=== PATIENT | male | born 1955 | race Caucasian/White ===

== ENCOUNTER 2023-03-14 13:22 | Outpatient (REF) | payer MEDICARE, SELFPAY ==
--- NOTE | ~2023-03-14 | XR_ITS ---
EXAMINATION: XR CHEST CLINICAL INFORMATION: Bronchitis COMPARISON: None available. TECHNIQUE: 2 views of the chest were obtained. FINDINGS: No significant abnormality is noted involving the heart, lungs, mediastinum, bony thorax or soft tissues. XR/XR chest 2V IMPRESSION: Unremarkable examination.
== END 2023-03-14 13:23 | disposition home or self-care (01) ==
LOC: HO.XRAY 13:22
PROVIDERS: Visit Provider Hospitalist
DX: R06.00 Dyspnea, unspecified (principal); R09.89 Other specified symptoms and signs involving the circulatory and respiratory systems; R49.0 Dysphonia; J40 Bronchitis, not specified as acute or chronic; R05.9 Cough, unspecified
CPT/HCPCS: 71046; 99202

== ENCOUNTER 2023-03-14 13:22 | Outpatient (AMB) | payer MEDICARE, SELFPAY ==
[2023-03-14 13:32] VITALS: BP 128/70; PULSE 86; O2SAT 97; BMI 29.4
--- NOTE | 2023-03-14 13:32 | A.OFFVIS_ITS ---
Intake Vital Signs 03/14/23 13:32 Height 5 ft 6 in Weight 181 lb 14.102 oz BMI 29.4 BP 128/70 Blood Pressure Location Lt brachial Position Sitting Pulse 86 Pulse Source Pulse Oximeter Pulse Oximetry (%) 97 Oxygen Delivery Method Room Air Intake Visit Reasons: Cough Pastor Required: No Allergies No Known Allergies Allergy (Verified 03/14/23 13:35) HPI HPI Comments History of Present Illness Details The patient is here for pulmonary evaluation. The patient is a 67-year-old gentle presenting with intermittent shortness of breath. The patient states that for the last several years she has had these intermittent episodes of shortness of breath. Typically independent with activity. Usually feels like is she has a hard time breathing in. Sometimes the episodes can last seconds in sometimes it can last up to 10-15 minutes. Usually he does not take any medications just allows him to resolve on their own. Patient also describes episodes of hoarseness specially after speaking for lung appears that time. [id number] severity. Denies any injury to the vocal cords per se. Although, he did require a partial thyroidectomy. This occurred many years ago. She was told that he may develop some vocal cord issues afterwards. Patient also states that the last several years he has also had frequent bronchitis. Typically once a year and is moderate in significance. When he does get bronchitis requires antibiotics and also times prednisone. He has never use any inhaler before or had at a prescription for. In the office on examination he does not have any wheezing or any stridor which is reassuring. The patient however has some crackles and a left base of unclear significance. Therefore having get a chest x-ray. I also provided peak flow. he was able to score 500 mL. The patient will be able to assess his peak flow measurements when he is having hard time breathing. Also will provide him with rescue inhaler that he can use as needed patient will undergo PFTs and also his chest x-ray and then return for follow-up. The patient's daughters also a speech pathologist. I did encourage him to ask about exercises and massages for the larynx in case there is a component of vocal cord dysfunction. [facility] Medical History (Updated 03/15/23 @ 08:40 by Bill Hadley MD) Hoarseness Social History (Updated 03/14/23 @ 13:37 by Lay Alexis, RMA) Patient Tobacco Use Status: Former Tobacco user Tobacco use type: Cigarette Years Smoked: 38 Years Ago Review of Systems Const Denies fever(s) and Denies weight loss Eyes Denies change in vision ENT Reports hoarseness Card Denies chest pain and Reports dyspnea Resp Reports cough, Reports dyspnea and Denies wheezing GI Reports dyspepsia and Reports heartburn Musc Reports no additional complaints Skin/Breast Denies rash Neuro Reports no additional complaints Andi/Lymph Denies lymphadenopathy Aller/Immun Denies wheezing Physical Exam Vital Signs: Last Vital Signs Pulse 86 03/14/23 13:32 BP 128/70 03/14/23 13:32 Pulse Ox 97 03/14/23 13:32 Oxygen Delivery Method Room Air 03/14/23 13:32 BMI result Body Mass Index 29.4 Const General: comfortable HEENT Head: Yes atraumatic Neck Neck: Yes normal visual inspection, Yes trachea midline and Yes supple Chest Chest palpation & inspection: normal inspection of the chest Resp Effort & Inspection: normal respiratory effort and no stridor Auscultation: rales on the left at the base Cardio Rate: regular rate Rhythm: regular rhythm Heart sounds: S1 normal heart sound present and S2 normal heart sound present GI Palpation (GI): Soft to palpation Skin General skin exam: no rashes or lesions noted Extrem General: Yes no clubbing, cyanosis or edema Assessment & Plan Assessment & Plan (1) Dyspnea: Code(s): R06.00 - Dyspnea, unspecified Qualifiers: Dyspnea type: unspecified Qualified Code(s): R06.00 - Dyspnea, unspecified (2) Chest crackles: Code(s): R09.89 - Other specified symptoms and signs involving the circulatory and respiratory systems (3) Hoarseness: Code(s): R49.0 - Dysphonia (4) Bronchitis: Code(s): J40 - Bronchitis, not specified as acute or chronic Plan The patient presents with episodic shortness of breath. The symptoms maybe related to an upper airway obstruction such as VCD. Howerver, asthma is in the differential. Also with episodes of bronchitis with some crackles on exam that needs further evaluation. REC: CXR peak flow provided; 500ml NU as needed or if peak flow decreases PFTs F/U 2 months Orders: Orders XR chest 2V 03/14/23 J40 - Bronchitis, not specified as acute or chronic PFT pulmonary function test Today R06.00 - Dyspnea, unspecified Medications: New albuterol sulfate 90 mcg/actuation 2 inhalations inhalation Q6H PRN 18 grams 12RF shortness of breath or wheezing 30 days J44.9 - Chronic obstructive pulmonary disease, unspecified Coding Level of Care Code New Pt Level 4 (96505) Diagnoses Dyspnea R06.00 Dyspnea type: unspecified Chest crackles R09.89 Hoarseness R49.0 Bronchitis J40 Time Spent (min) 40
== END 2023-03-14 14:13 | disposition home or self-care (01) ==
PROVIDERS: PCP Physician Assistant Medical; Visit Provider Hospitalist
DX: R06.00 Dyspnea, unspecified (principal); R09.89 Other specified symptoms and signs involving the circulatory and respiratory systems; R49.0 Dysphonia; J40 Bronchitis, not specified as acute or chronic
CPT/HCPCS: 99204

== ENCOUNTER 2023-03-28 11:23 | Outpatient (REF) | payer MEDICARE, SELFPAY ==
--- NOTE | 2023-03-28 12:03 | PFT_ITS ---
FLOWS: 1. FEV1 113% of predicted at 3.22 L. 2. FVC 105% of predicted at 4.05 L. 3. FEV1 to FVC ratio of 0.79. 4. No bronchodilator response. LUNG VOLUMES: 1. Total lung capacity 86% of predicted at 5.40 L. 2. Residual volume 60% of predicted at 1.32 L. 3. Slow vital capacity 101% of predicted at 4.08 L. 4. Expiratory reserve volume 47% of predicted at 0.50 L. 5. Diffusion capacity is normal. IMPRESSION: No obstructive or restrictive ventilatory defect. No bronchodilator response. Essentially normal pulmonary function test. Emil Lozano MD AP/MODL / [id number]
== END 2023-03-28 11:24 | disposition home or self-care (01) ==
LOC: HO.RESP 11:23
PROVIDERS: PCP Physician Assistant Medical; Visit Provider Hospitalist
DX: R06.00 Dyspnea, unspecified (principal)
CPT/HCPCS: 94010; 94727; 94729

== ENCOUNTER → 2023-03-28 12:03 | Outpatient (BNV) | payer MEDICARE, SELFPAY | PROVIDERS: PCP Physician Assistant Medical; Visit Provider Internal Medicine Pulmonary Disease | DX: R06.09 Other forms of dyspnea (principal); R05.3 Chronic cough | CPT/HCPCS: 94060; 94727; 94729 ==

== ENCOUNTER 2023-05-03 13:50 | Outpatient (AMB) | payer MEDICARE, SELFPAY ==
--- NOTE | 2023-05-03 14:01 | MHC.OFFVIS ---
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 The patient states that for the last several years she has had these intermittent episodes of shortness of breath. Typically independent with activity. Usually feels like is she has a hard time breathing in. Sometimes the episodes can last seconds in sometimes it can last up to 10-15 minutes. Usually he does not take any medications just allows him to resolve on their own. Patient also describes episodes of hoarseness specially after speaking for lung appears that time. Nusm-gk-wwtnluka severity. Denies any injury to the vocal cords per se. Although, he did require a partial thyroidectomy. This occurred many years ago. She was told that he may develop some vocal cord issues afterwards. Patient also states that the last several years he has also had frequent bronchitis. Typically once a year and is moderate in significance. When he does get bronchitis requires antibiotics and also times prednisone. He has never use any inhaler before or had at a prescription for. In the office on examination he does not have any wheezing or any stridor which is reassuring. The patient however has some crackles and a left base of unclear significance. Therefore having get a chest x-ray. I also provided peak flow. he was able to score 500 mL. The patient will be able to assess his peak flow measurements when he is having hard time breathing. Also will provide him with rescue inhaler that he can use as needed patient will undergo PFTs and also his chest x-ray and then return for follow-up. The patient's daughters also a speech pathologist. I did encourage him to ask about exercises and massages for the larynx in case there is a component of vocal cord dysfunction. 05/03/2023 the patient is here for a pulmonary follow-up visit. Overall the patient is doing about the same. Still complaining of that difficulty breathing and sensation mainly on the throat area. Moderate severity. It is intermittent. Patient did have pulmonary function studies we personally reviewed them. They are fairly normal. Although upon looking at the flow volume loop there appears to be some saw tooth pattern to the inspiratory flow suggesting some fasciculation of the vocal cords. This will go along with underlying vocal cord dysfunction. In addition to that his lung volumes were low normal. The patient also underwent a chest x-ray which was without any acute disease which is reassuring. Based on the findings and ongoing symptoms I did recommend he consider getting a CT scan of the neck. She is going to consider for now. Also, an ENT consultation for laryngoscopy will be important to assess for vocal cord dysfunction properly. The patient is also has access to a speech pathologist in the family. He will talk to them again to make sure that he can get some exercise syndrome ideas as far as vocal cord dysfunction. The patient also will prescribe gabapentin that he can use at night to try to provide some relaxation larynx. [facility] Medical History (Updated 05/03/23 @ 21:30 by Bill Hadley MD) Vocal cord dysfunction Hoarseness Social History (Updated 03/14/23 @ 13:37 by DREW Osullivan) Patient Tobacco Use Status: Former Tobacco user Tobacco use type: Cigarette Years Smoked: 38 Years Ago Review of Systems Const Denies fever(s) and Denies weight loss Eyes Denies change in vision ENT Reports hoarseness Card Denies chest pain and Reports dyspnea Resp Reports cough, Reports dyspnea and Denies wheezing GI Reports dyspepsia and Reports heartburn Musc Reports no additional complaints Skin/Breast Denies rash Neuro Reports no additional complaints Andi/Lymph Denies lymphadenopathy Aller/Immun Denies wheezing Physical Exam Vital Signs: Last Vital Signs Pulse 80 05/03/23 14:07 Pulse Ox 98 05/03/23 14:07 Oxygen Delivery Method Room Air 05/03/23 14:07 BMI result Body Mass Index 28.4 Const General: comfortable HEENT Head: Yes atraumatic Neck Neck: Yes normal visual inspection, Yes trachea midline and Yes supple Chest Chest palpation & inspection: normal inspection of the chest Resp Effort & Inspection: normal respiratory effort and no stridor Auscultation: rales on the left at the base Cardio Rate: regular rate Rhythm: regular rhythm Heart sounds: S1 normal heart sound present and S2 normal heart sound present GI Palpation (GI): Soft to palpation Skin General skin exam: no rashes or lesions noted Extrem General: Yes no clubbing, cyanosis or edema Assessment & Plan Assessment & Plan (1) Dyspnea: Code(s): R06.00 - Dyspnea, unspecified Qualifiers: Dyspnea type: unspecified Qualified Code(s): R06.00 - Dyspnea, unspecified (2) Hoarseness: Code(s): R49.0 - Dysphonia Plan The patient presents with episodic shortness of breath. The symptoms maybe related to an upper airway obstruction such as VCD. CXR is reassuring. PFTs with no obstruction, but a fine saw tooth pattern during the inspiratory phase suggesting fasciculations of the vocal cords REC: Consider CT neck, the patient will think about it ENT consultation for laryngoscopy or strobe to assess vocal cords start gabapentin at night NU as needed speech therapy F/U 4-6 months Orders: Referrals Ear/Nose/Throat Referral J38.3 - Other diseases of vocal cords Medications: New gabapentin 300 mg PO BEDTIME 30 days 30 caps 6RF Coding Level of Care Code Est Pt Level 4 (22542) Diagnoses Dyspnea, unspecified type R06.00 Dyspnea type: unspecified Hoarseness R49.0 Time Spent (min) 18
[2023-05-03 14:07] VITALS: PULSE 80; O2SAT 98; BMI 28.4
== END 2023-05-03 14:28 | disposition home or self-care (01) ==
PROVIDERS: PCP Physician Assistant Medical; Visit Provider Hospitalist
DX: R06.00 Dyspnea, unspecified (principal); R49.0 Dysphonia
CPT/HCPCS: 99214

== ENCOUNTER → 2023-05-03 13:50 | Outpatient (BNVA) | payer MEDICARE, SELFPAY | PROVIDERS: PCP Physician Assistant Medical; Visit Provider Hospitalist | DX: R06.00 Dyspnea, unspecified (principal); R49.0 Dysphonia | CPT/HCPCS: 99212 ==

== ENCOUNTER 2023-07-08 08:17 | Outpatient (REF) | payer MEDICARE, SELFPAY ==
--- NOTE | ~2023-07-08 | CT_ITS ---
EXAMINATION: CT SOFT TISSUE NECK WITH CONTRAST CLINICAL INFORMATION: 68-year-old with disease of upper respiratory tract, unspecified. Shortness of breath, episodes of hoarseness. COMPARISON: None available. TECHNIQUE: Following the intravenous administration of 60 mL of Omnipaque 350 intravenous contrast, helical imaging was performed in the axial plane with generation of coronal and sagittal reformatted images. This CT examination was performed using dose optimization techniques as appropriate, variously including the following: *Automated exposure control *Adjustment of mA and/or kV according to patient size (this includes techniques or standardized protocols for targeted exams where dose is matched to indication/reason for exam; i.e. extremities or head) *Use of iterative reconstruction technique DLP: 376 mGy-cm FINDINGS: Skull Base: The bony skull base and visualized calvarium appear grossly intact.?Limited assessment of the visualized intracranial and orbital soft tissue structures is unremarkable.?The visualized mastoids, middle ear cavities and sinonasal cavity are clear. Suprahyoid Neck: The nasopharynx, retropharynx and oropharynx are smoothly contoured without significant nodularity or abnormal enhancement. The corporate meeting planner and parapharyngeal spaces are within normal limits with a normal appearance to the major salivary glands. Soft palate, oral tongue and base of the tongue are symmetric and intact. The floor of the mouth structures appear within normal limits. Lingual and buccal spaces appear normal. Patient is noted to be edentulous. Scattered small, nonenlarged, nonpathologic-appearing bilateral submandibular space and IJ chain lymph nodes are noted. No lymphadenopathy. There is somewhat nodular-appearing asymmetrically enhancing lingual tonsillar tissue projecting into the left vallecula, which should be correlated with direct visualization. Epiglottis appears within normal limits. Infrahyoid Neck: The hypopharynx and larynx appear grossly within normal limits. Beam-hardening and streak artifact from dense contrast material within the right internal jugular vein and spinal hardware partially obscures evaluation of the retropharyngeal and retrolaryngeal soft tissues and limits the study. There are clips in the left thyroid bed consistent with a previous left-sided hemithyroidectomy. The residual right thyroid lobe is partially obscured at its cephalad margin but demonstrates no recurrent nodules. No infrahyoid lymphadenopathy identified. Vascular: There is opacification of the major arterial vessels. There is calcified plaque at both carotid bulbs, right more than left. Suggest correlation for any bruits. There is reflux of dense contrast material into the right internal jugular vein. Upper Chest: Evaluation of the visualized lung parenchyma is limited due to the expiratory phase of this exam. Heterogeneous lung attenuation is likely reflective of this. The subglottic and thoracic trachea are patent and normal in caliber. Mild left coronary calcification is suspected. Mediastinum is otherwise grossly unremarkable. Skeletal: There is cervicothoracic dextrocurvature at the C6-C7 level. Straightening of the cervical spine in the sagittal plane with evidence of a previous ACDF procedure spanning the C4-C5 level with metallic hardware noted in place. Mild anterolisthesis at C2-C3 with multilevel DDD and spondylosis throughout the remainder of the cervical spine. Other Comments: None. CT/CT soft tissue neck w IV con IMPRESSION: 1. Status post left-sided hemithyroidectomy no evidence for airway compromise. 2. No cervical lymphadenopathy identified. Note that the beam-hardening from spinal hardware and dense contrast material in the right IJ vein partially obscures evaluation of the retropharyngeal/retrolaryngeal soft tissues. 3. Calcified plaque at both carotid bulbs, right more than left. Suggest correlation for any bruits. 4. Multilevel cervical degenerative changes and postoperative changes as described above.
[2023-07-08] MEDS: iohexoL 350 MG/ML 75 ML INFUS..BTL 60 ML IV (09:30)
[2023-07-11 09:07] LABS: Creatinine POC 0.7 mg/dL (0.5-1.4); GFR POC > 60
== END 2023-07-08 08:18 | disposition home or self-care (01) ==
LOC: HO.CT 08:17
PROVIDERS: PCP Physician Assistant Medical; Visit Provider Hospitalist
DX: J39.9 Disease of upper respiratory tract, unspecified (principal)
CPT/HCPCS: 70491; 82565; Q9967

== ENCOUNTER 2023-11-08 10:58 | Outpatient (AMB) | payer MEDICARE, SELFPAY ==
[2023-11-08 11:01] VITALS: PULSE 73; O2SAT 97
--- NOTE | 2023-11-08 11:01 | A.OFFVIS_ITS ---
Intake Vital Signs 11/08/23 11:01 Height 5 ft 6 in Weight 186 lb BMI 30.0 Pulse 73 Pulse Source Pulse Oximeter Pulse Oximetry (%) 97 Oxygen Delivery Method Room Air Intake Visit Reasons: Cough Fingernail Former Required: No Allergies No Known Allergies Allergy (Verified 11/08/23 11:02) HPI HPI Comments History of Present Illness Details The patient is a 68-year-old gentle presenting with intermittent shortness of breath. The patient states that for the last several years she has had these intermittent episodes of shortness of breath. Typically independent with activity. Usually feels like is she has a hard time breathing in. Sometimes the episodes can last seconds in sometimes it can last up to 10-15 minutes. Usually he does not take any medications just allows him to resolve on their own. Patient also describes episodes of hoarseness specially after speaking for lung appears that time. Mvcy-eq-xlvttifh severity. Denies any injury to the vocal cords per se. Although, he did require a partial thyroidectomy. This occurred many years ago. She was told that he may develop some vocal cord issues afterwards. Patient also states that the last several years he has also had frequent bronchitis. Typically once a year and is moderate in significance. When he does get bronchitis requires antibiotics and also times prednisone. He has never use any inhaler before or had at a prescription for. In the office on examination he does not have any wheezing or any stridor which is reassuring. The patient however has some crackles and a left base of unclear significance. Therefore having get a chest x-ray. I also provided peak flow. he was able to score 500 mL. The patient will be able to assess his peak flow measurements when he is having hard time breathing. Also will provide him with rescue inhaler that he can use as needed patient will undergo PFTs and also his chest x-ray and then return for follow-up. The patient's daughters also a speech pathologist. I did encourage him to ask about exercises and massages for the larynx in case there is a component of vocal cord dysfunction. 05/03/2023 the patient is here for a pulm onary follow-up visit. Overall the patient is doing about the same. Still complaining of that difficulty breathing and sensation mainly on the throat area. Moderate severity. It is intermittent. Patient did have pulmonary function studies we personally reviewed them. They are fairly normal. Although upon looking at the flow volume loop there appears to be some saw tooth pattern to the inspiratory flow suggesting some fasciculation of the vocal cords. This will go along with underlying vocal cord dysfunction. In addition to that his lung volumes were low normal. The patient also underwent a chest x-ray which was without any acute disease which is reassuring. Based on the findings and ongoing symptoms I did recommend he consider getting a CT scan of the neck. She is going to consider for now. Also, an ENT consultation for laryngoscopy will be important to assess for vocal cord dysfunction properly. The patient is also has access to a speech pathologist in the family. He will talk to them again to make sure that he can get some exercise syndrome ideas as far as vocal cord dysfunction. The patient also will prescribe gabapentin that he can use at night to try to provide some relaxation larynx. 11/08/2023 the patient is here for a pulmo nary follow-up visit. The patient overall has been doing better. His cough is better in the coughing spells have decreasing amount. We did talk about the saw tooth pattern of his flow volume loops suggesting some degree of vocal cord dysfunction. We did refer him to ENT but he has not heard the as of yet. Therefore will call ENT to see and get an update as far as the appointment. The patient also had a CT scan of the neck which we personally reviewed. He did have a partial thyroidectomy. Although his trachea appears to be intact. Vocal cords also appeared to be intact. The patient did have some inflammation the nasal turbinates. It was also mention some calcifications of the carotid bulbs as far as carotid arteries and I do not appreciate any bruits but at this point doing carotid Doppler will be reasonable. The patient also has atherosclerosis of the coronary arteries at least appreciated limited based on her CT scan of the neck. The patient can follow-up with primary care doctor also he was recently placed on Lipitor which is reassuring from a how standpoint he did try the inhaler that short-acting beta agonist he only felt some tremulousness and palpitations but it did not help his cough. The patient hopefully will see ENT in will consider getting allergy testing when he is seen by them. Right now he is having some nasal congestion and sinus tenderness. Will go ahead and treating for about sinusitis. The patient can also start Afrin just for 5 days to help him with the nasal congestion and then continue with fluticasone nasal spray and also can double up on the allergy medicine for now. [facility] Medical History (Updated 11/08/23 @ 21:24 by Bill Hadley MD) Vocal cord dysfunction Hoarseness Social History (Updated 03/14/23 @ 13:37 by Lay Alexis Nelia) Patient Tobacco Use Status: Former Tobacco user Tobacco use type: Cigarette Years Smoked: 38 Years Ago Review of Systems Const Denies fever(s) and Denies weight loss Eyes Denies change in vision ENT Reports hoarseness Card Denies chest pain and Reports dyspnea Resp Reports cough, Reports dyspnea and Denies wheezing GI Reports dyspepsia and Reports heartburn Musc Reports no additional complaints Skin/Breast Denies rash Neuro Reports no additional complaints Andi/Lymph Denies lymphadenopathy Aller/Immun Denies wheezing Physical Exam Vital Signs: Last Vital Signs Pulse 73 11/08/23 11:01 Pulse Ox 97 11/08/23 11:01 Oxygen Delivery Method Room Air 11/08/23 11:01 BMI result Body Mass Index 30.0 Const General: comfortable HEENT Head: Yes atraumatic Neck Neck: Yes normal visual inspection, Yes trachea midline and Yes supple Chest Chest palpation & inspection: normal inspection of the chest Resp Effort & Inspection: normal respiratory effort and no stridor Auscultation: no rales Cardio Rate: regular rate Rhythm: regular rhythm Heart sounds: S1 normal heart sound present and S2 normal heart sound present GI Palpation (GI): Soft to palpation Skin General skin exam: no rashes or lesions noted Extrem General: Yes no clubbing, cyanosis or edema Results Reviewed Results Reviewed: [place] [address] CT Scan Report Signed Patient: Raghav Frost MR#: [id number] : 1955 Acct:[id number] Age/Sex: 68 / M ADM Date: 07/08/23 Loc: HO.CT Attending Dr: Bill aHdley MD Ordering Physician: Bill Hadley MD Date of Service: 07/08/23 Procedure(s): CT soft tissue neck w IV con Accession Number(s): [id number] cc: Bill Hadley MD; Mayelin Forrester~ EXAMINATION: CT SOFT TISSUE NECK WITH CONTRAST CLINICAL INFORMATION: 68-year-old with disease of upper respiratory tract, unspecified. Shortness of breath, episodes of hoarseness. COMPARISON: None available. TECHNIQUE: Following the intravenous administration of 60 mL of Omnipaque 350 intravenous contrast, helical imaging was performed in the axial plane with generation of coronal and sagittal reformatted images. This CT examination was performed using dose optimization techniques as appropriate, variously including the following: *Automated exposure control *Adjustment of mA and/or kV according to patient size (this includes techniques or standardized protocols for targeted exams where dose is matched to indication/reason for exam; i.e. extremities or head) *Use of iterative reconstruction technique DLP: 376 mGy-cm FINDINGS: Skull Base: The bony skull base and visualized calvarium appear grossly intact.?Limited assessment of the visualized intracranial and orbital soft tissue structures is unremarkable.?The visualized mastoids, middle ear cavities and sinonasal cavity are clear. Suprahyoid Neck: The nasopharynx, retropharynx and oropharynx are smoothly contoured without significant nodularity or abnormal enhancement. The vp outcomes and parapharyngeal spaces are within normal limits with a normal appearance to the major salivary glands. Soft palate, oral tongue and base of the tongue are symmetric and intact. The floor of the mouth structures appear within normal limits. Lingual and buccal spaces appear normal. Patient is noted to be edentulous. Scattered small, nonenlarged, nonpathologic-appearing bilateral submandibular space and IJ chain lymph nodes are noted. No lymphadenopathy. There is somewhat nodular-appearing asymmetrically enhancing lingual tonsillar tissue projecting into the left vallecula, which should be correlated with direct visualization. Epiglottis appears within normal limits. Infrahyoid Neck: The hypopharynx and larynx appear grossly within normal limits. Beam-hardening and streak artifact from dense contrast material within the right internal jugular vein and spinal hardware partially obscures evaluation of the retropharyngeal and retrolaryngeal soft tissues and limits the study. There are clips in the left thyroid bed consistent with a previous left-sided hemithyroidectomy. The residual right thyroid lobe is partially obscured at its cephalad margin but demonstrates no recurrent nodules. No infrahyoid lymphadenopathy identified. Vascular: There is opacification of the major arterial vessels. There is calcified plaque at both carotid bulbs, right more than left. Suggest correlation for any bruits. There is reflux of dense contrast material into the right internal jugular vein. Upper Chest: Evaluation of the visualized lung parenchyma is limited due to the expiratory phase of this exam. Heterogeneous lung attenuation is likely reflective of this. The subglottic and thoracic trachea are patent and normal in caliber. Mild left coronary calcification is suspected. Mediastinum is otherwise grossly unremarkable. Skeletal: There is cervicothoracic dextrocurvature at the C6-C7 level. Straightening of the cervical spine in the sagittal plane with evidence of a previous ACDF procedure spanning the C4-C5 level with metallic hardware noted in place. Mild anterolisthesis at C2-C3 with multilevel DDD and spondylosis throughout the remainder of the cervical spine. Other Comments: None. CT/CT soft tissue neck w IV con IMPRESSION: 1. Status post left-sided hemithyroidectomy no evidence for airway compromise. 2. No cervical lymphadenopathy identified. Note that the beam-hardening from spinal hardware and dense contrast material in the right IJ vein partially obscures evaluation of the retropharyngeal/retrolaryngeal soft tissues. 3. Calcified plaque at both carotid bulbs, right more than left. Suggest correlation for any bruits. 4. Multilevel cervical degenerative changes and postoperative changes as described above. Dictated By: TUCKER BIGGS MD Signed By: <Electronically signed by TUCKER BIGGS MD in OV> 07/13/23 180 DD/ 4 TD/TT: [employer] Consultant: Assessment & Plan Assessment & Plan (1) Dyspnea: Code(s): R06.00 - Dyspnea, unspecified Qualifiers: Dyspnea type: unspecified Qualified Code(s): R06.00 - Dyspnea, unspecified (2) Hoarseness: Comment: better Code(s): R49.0 - Dysphonia (3) Carotid artery calcification: Code(s): I65.29 - Occlusion and stenosis of unspecified carotid artery Qualifiers: Laterality: bilateral Qualified Code(s): I65.23 - Occlusion and stenosis of bilateral carotid arteries Plan The patient presents with episodic shortness of breath. The symptoms maybe related to an upper airway obstruction such as VCD. CXR is reassuring. PFTs with no obstruction, but a fine saw tooth pattern during the inspiratory phase suggesting fasciculations of the vocal cords REC: Increase Zyrtec BID x 1 month Start Fluticasone nasal spray ENT consultation for laryngoscopy or strobe to assess vocal cords. Should also have allergy testing Gabapentin at night NU as needed speech therapy Carotid dopplers B/L F/U 8-12 months Orders: Orders US carotid duplex BI Today I65.29 - Occlusion and stenosis of unspecified carotid artery Medications: New fluticasone propionate 50 mcg/actuation 2 sprays intranasal DAILY 30 days 16 grams 5RF cetirizine (Zyrtec) 10 mg PO BID 30 days 60 tabs 0RF Coding Level of Care Code Est Pt Level 4 (46791) Diagnoses Dyspnea, unspecified type R06.00 Dyspnea type: unspecified Hoarseness R49.0 Calcification of both carotid arteries I65.23 Laterality: bilateral Time Spent (min) 18
== END 2023-11-08 11:26 | disposition home or self-care (01) ==
PROVIDERS: PCP Nurse Practitioner; Visit Provider Hospitalist
DX: R06.00 Dyspnea, unspecified (principal); R49.0 Dysphonia; I65.23 Occlusion and stenosis of bilateral carotid arteries
CPT/HCPCS: 99214

== ENCOUNTER → 2023-11-08 10:58 | Outpatient (BNVA) | payer MEDICARE, SELFPAY | PROVIDERS: PCP Physician Assistant Medical; Visit Provider Hospitalist | DX: R06.00 Dyspnea, unspecified (principal); I77.9 Disorder of arteries and arterioles, unspecified; R49.0 Dysphonia; I65.23 Occlusion and stenosis of bilateral carotid arteries | CPT/HCPCS: 99212 ==

== ENCOUNTER 2023-11-28 09:56 | Outpatient (REF) | payer MEDICARE, SELFPAY ==
--- NOTE | ~2023-11-28 | US_ITS ---
EXAMINATION: US EXTRACRANIAL CAROTID DUPLEX, BILATERAL CLINICAL INFORMATION: Occlusion and stenosis of unspecified carotid artery COMPARISON: None available. TECHNIQUE: Real-time ultrasound and Doppler techniques (integrating B-mode 2-D vascular images, Doppler spectral analysis and color-flow Doppler imaging) were utilized to interrogate the extracranial carotid arteries, the vertebral arteries and proximal subclavian arteries bilaterally. The degree of stenosis is determined by criteria similar to NASCET. FINDINGS: Right Side: 1. There is mild atherosclerotic plaque seen in the bifurcation/proximal ICA region. 2. The common carotid artery PSV proximally is 94 cm/s and distally 77 cm/s. 3. The proximal internal carotid artery velocities are 57 cm/s systolic and 11 cm/s diastolic. 4. The proximal external carotid artery PSV is 106 cm/s. 5. The vertebral artery shows antegrade flow. 6. The subclavian artery waveforms are normal. Left Side: 1. There is mild atherosclerotic plaque seen in the bifurcation/proximal ICA region. 2. The common carotid artery PSV proximally is 109 cm/s and distally 83 cm/s. 3. The proximal internal carotid artery velocities are 61 cm/s systolic and 25 cm/s diastolic. 4. The proximal external carotid artery PSV is 94 cm/s. 5. The vertebral artery shows antegrade flow. 6. The subclavian artery waveforms are normal. US/US carotid duplex BI IMPRESSION: 1. RIGHT: Minimal, non-hemodynamically significant stenosis of the proximal right internal carotid artery corresponding to a 0-49% stenosis by velocity criteria. 2. LEFT: Minimal, non-hemodynamically significant stenosis of the proximal left internal carotid artery corresponding to a 0-49% stenosis by velocity criteria.
== END 2023-11-28 09:57 | disposition home or self-care (01) ==
LOC: HO.US 09:56
PROVIDERS: PCP Nurse Practitioner; Visit Provider Hospitalist
DX: I65.23 Occlusion and stenosis of bilateral carotid arteries (principal); I77.9 Disorder of arteries and arterioles, unspecified
CPT/HCPCS: 93880

== ENCOUNTER 2024-11-23 09:47 | Outpatient (AMB) | payer MEDICARE, SELFPAY ==
[2024-11-23 09:50] VITALS: BP 110/62; PULSE 76; O2SAT 99; BMI 31.5
--- NOTE | 2024-11-23 09:50 | A.OFFVIS_ITS ---
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 The patient states that for the last several years she has had these intermittent episodes of shortness of breath. Typically independent with activity. Usually feels like is she has a hard time breathing in. Sometimes the episodes can last seconds in sometimes it can last up to 10-15 minutes. Usually he does not take any medications just allows him to resolve on their own. Patient also describes episodes of hoarseness specially after speaking for lung appears that time. Ackd-rp-bulnhaan severity. Denies any injury to the vocal cords per se. Although, he did require a partial thyroidectomy. This occurred many years ago. She was told that he may develop some vocal cord issues afterwards. Patient also states that the last several years he has also had frequent bronchitis. Typically once a year and is moderate in significance. When he does get bronchitis requires antibiotics and also times prednisone. He has never use any inhaler before or had at a prescription for. In the office on examination he does not have any wheezing or any stridor which is reassuring. The patient however has some crackles and a left base of unclear significance. Therefore having get a chest x-ray. I also provided peak flow. he was able to score 500 mL. The patient will be able to assess his peak flow measurements when he is having hard time breathing. Also will provide him with rescue inhaler that he can use as needed patient will undergo PFTs and also his chest x-ray and then return for follow-up. The patient's daughters also a speech pathologist. I did encourage him to ask about exercises and massages for the la rynx in case there is a component of vocal cord dysfunction. 05/03/2023 the patient is here for a pulmonary follow-up visit. Overall the patient is doing about the same. Still complaining of that difficulty breathing and sensation mainly on the throat area. Moderate severity. It is intermittent. Patient did have pulmonary function studies we personally reviewed them. They are fairly normal. Although upon looking at the flow volume loop there appears to be some saw tooth pattern to the inspiratory flow suggesting some fasciculation of the vocal cords. This will go along with underlying vocal cord dysfunction. In addition to that his lung volumes were low normal. The patient also underwent a chest x-ray which was without any acute disease which is reassuring. Based on the findings and ongoing symptoms I did recommend he consider getting a CT scan of the neck. She is going to consider for now. Also, an ENT consultation for laryngoscopy will be important to assess for vocal cord dysfunction properly. The patient is also has access to a speech pathologist in the family. He will talk to them again to make sure that he can get some exercise syndrome ideas as far as vocal cord dysfunction. The patient also will prescribe gabapentin that he can use at night to try to provide some relaxation larynx. 11/08/2023 the patient is here for a pulmonary follow-up visit. The patient overall has been doing better. His cough is better in the coughing spells have decreasing amount. We did talk about the saw tooth pattern of his flow volume loops suggesting some degree of vocal cord dysfunction. We did refer him to ENT but he has not heard the as of yet. Therefore will call ENT to see and get an update as far as the appointment. The patient also had a CT scan of the neck which we personally reviewed. He did have a partial thyroidectomy. Although his trachea appears to be intact. Vocal cords also appeared to be intact. The patient did have some inflammation the nasal turbinates. It was also mention some calcifications of the carotid bulbs as far as carotid arteries and I do not appreciate any bruits but at this point doing carotid Doppler will be reasonable. The patient also has atherosclerosis of the coronary arteries at least appreciated limited based on her CT scan of the neck. The patient can follow-up with primary care doctor also he was recently placed on Lipitor which is reassuring from a how standpoint he did try the inhaler that short-acting beta agonist he only felt some tremulousness and palpitations but it did not help his cough. The patient hopefully will see ENT in will consider getting allergy testing when he is seen by them. Right now he is having some nasal congestion and sinus tenderness. Will go ahead and treating for about sinusitis. The patient can also start Afrin just for 5 days to help him with the nasal congestion and then continue with fluticasone nasal spray and also can double up on the allergy medicine for now. 11/23/2024 the patient is here for a pulmonary follow-up visit. Overall the patient is doing well. He did finally have allergy testing and does have significant allergies. 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 He responds most of the fluticasone nasal spray and also to the Zyrtec. He has been taking that regularly. Has a rescue inhaler but he has not required it. We did review his most recent imaging studies which include the chest x-ray from 2022 demonstrating no acute disease and also CT scan of the neck demonstrating a little bit of air trapping mosaic pattern likely secondary to expiratory CT scan cuts and this have the atherosclerosis. He did have that followed up. Overall the patient is doing well he has hoarseness is better. The patient will go ahead and follow-up in a year's time or as needed. If he has any issues prior to that he will call for an earlier assessment. [facility] Medical History (Updated 11/08/23 @ 21:24 by Bill Hadley MD) Vocal cord dysfunction Hoarseness Social History (Updated 11/23/24 @ 09:54 by Barbi Friedman CMA) Alcohol intake: current Alcohol intake frequency: holidays/special occasions only Patient Tobacco Use Status: Former Tobacco user Tobacco use type: Cigarette Years Smoked: 38 Years Ago Review of Systems Const Denies chills, Denies fatigue, Denies fever(s), Denies weight gain and Denies weight loss Eyes Denies change in vision ENT Denies dizziness, Reports nasal congestion and Reports nasal discharge Card Denies chest pain, Denies leg edema, Denies lightheadedness, Denies palpitations, Denies dyspnea on exertion, Denies orthopnea and Denies other Resp Reports cough, Denies dyspnea on exertion and Denies wheezing GI Denies hematochezia and Denies change in stool character Musc Denies abnormal gait, Denies muscle weakness, Denies numbness, Denies radiating pain into limb and Denies tingling Skin/Breast Denies rash Neuro Denies abnormal gait, Denies dizziness, Denies numbness and Denies tingling Endo Denies fatigue and Denies palpitations Andi/Lymph Denies lymphadenopathy Aller/Immun Denies wheezing Physical Exam Vital Signs: Last Vital Signs Pulse 76 04/25/25 09:50 BP 110/62 11/23/24 09:50 Pulse Ox 99 11/23/24 09:50 BMI result Body Mass Index 31.5 Const General: comfortable HEENT Head: Yes atraumatic Neck Neck: Yes normal visual inspection, Yes trachea midline and Yes supple Chest Chest palpation & inspection: normal inspection of the chest Resp Effort & Inspection: normal respiratory effort and no stridor Auscultation: no rales Cardio Rate: regular rate Rhythm: regular rhythm Heart sounds: S1 normal heart sound present and S2 normal heart sound present GI Palpation (GI): Soft to palpation Skin General skin exam: no rashes or lesions noted Extrem General: Yes no clubbing, cyanosis or edema Assessment & Plan Assessment & Plan (1) Dyspnea: Code(s): R06.00 - Dyspnea, unspecified Category: Medical Qualifiers: Dyspnea type: unspecified Qualified Code(s): R06.00 - Dyspnea, unspecified (2) Hoarseness: Comment: better Code(s): R49.0 - Dysphonia Category: Medical Plan Zyrtec Fluticasone nasal spray Gabapentin at night NU as needed F/U 12 months Medications: Changed From fluticasone propionate 50 mcg/actuation 2 sprays intranasal DAILY 48 mL 1RF To fluticasone propionate 50 mcg/actuation 2 sprays intranasal DAILY 3 ea 3RF 90 days Coding Level of Care Code Est Pt Level 4 (51814) Diagnoses Dyspnea, unspecified type R06.00 Dyspnea type: unspecified Hoarseness R49.0 Time Spent (min) 16
--- OUTSIDE RECORDS SUMMARY | 2024-11-23 10:06 | XMS_ITS | Clinical Summary ---
Author Organization [address] Address [address] [place] [address] Phone Care Team Providers Care Business Teacher Name Role Phone Unavailable Primary Care Provider Unavailabl e Surgical History Surgery Date Site/Laterality Comments OTHER SURGICAL HISTORY PROCEDURE: [place] NEPHRECTOMY W/PRTL URETERECTOMY W/OPEN RIB RESCJ; COMMENT: donated kidney ANKLE SURGERY Left PROCEDURE: HISTORICAL ANKLE SURGERY KNEE SURGERY 2012 Right PROCEDURE: HISTORICAL KNEE SURGERY NECK SURGERY 2013 PROCEDURE: HISTORICAL NECK SURGERY PROSTATE SURGERY 2009 PROCEDURE: HISTORICAL PROSTATE SURGERY HERNIA REPAIR PROCEDURE: HISTORICAL HERNIA REPAIR/ING; COMMENT: multiple hernia repairs OTHER SURGICAL HISTORY PROCEDURE: HISTORICAL SUBTOTAL THYROIDECTOMY OTHER SURGICAL HISTORY 02/25/2022 PROCEDURE: [place] SOLIS FACETECTOMY & FORAMOTOMY 1 VRT SGM LUMBAR; COMMENT: L3-4, L4-5 decompression, Dr. Ball Medical History Medical History Date Comments Essential hypertension DX:Essent ial hypertension Migraines DX:Migraines Social History Tobacco Use Types Packs/Day Years Used Date Smoking Tobacco: Never Smokeless Tobacco: Never Sex and Gender Information Value Date Recorded Sex Assigned at Male 05/16/2024 7:29 AM EDT Legal Sex Male 11:45 AM EST Gender Identity Male 05/16/2024 7:29 AM EDT Sexual Orientation Not on file Obstetrics History Last Filed Vital Signs Vital Sign Reading Time Taken Comments Blood Pressure - - Pulse - - Temperature - - Respiratory Rate - - Oxygen Saturation - - Inhaled Oxygen Concentration - - Weight 81.6 kg (180 lb) 04/23/2022 10:57 AM EDT Height 167.6 cm (5' 6 ) 04/23/2022 10:57 AM EDT Body Mass Index 29.05 04/23/2022 10:57 AM EDT Plan of Treatment Health Maintenance Due Date Last Done Comments DTaP,Tdap,and Td Vaccines (1 - Tdap) 1974 Pneumococcal Vaccine: 50+ Years (1 of 1 - PCV) 2005 Zoster Vaccines (1 of 2) 2005 Abdominal Aortic Aneurysm (AAA) Screen 06/29/2022 Cholesterol Screening (Lipid Panel) 06/29/2022 Colorectal Cancer Screening: Colonoscopy 06/29/2022 Depression Screening 06/29/2022 Falls Risk Assessment 06/29/2022 Hepatitis C Screening 06/29/2022 Medicare Annual Wellness Visit 06/29/2022 Social Influencers of Health Screening 06/29/2022 COVID-19 Vaccine ( season) 2024 12/10/2021, 04/07/2021, 10/23/2020, Additional history exists Influenza Vaccine (Season Ended) 2025 04/25/2018, 05/26/2017 RSV Immunization Adult Patients (1 - 1-dose 75+ series) 2030 HIB Vaccines Aged Out No longer eligi ble based on patient's age to complete this topic HPV Vaccines Aged Out No longer eligi ble based on patient's age to complete this topic Hepatitis A Vaccines Aged Out No long er eligible based on patient's age to complete this topic Hepatitis B Vaccines Aged Out No long er eligible based on patient's age to complete this topic IPV Vaccines Aged Out No longer eligi ble based on patient's age to complete this topic MMR Vaccines Aged Out No longer eligi ble based on patient's age to complete this topic Meningococcal ACWY Vaccine Aged Out N o longer eligible based on patient's age to complete this topic Meningococcal B Vaccine Aged Out No l onger eligible based on patient's age to complete this topic RSV Immunization Patients Under 20 months Aged Out No longer eligible based on patient's age to complete this topic Varicella Vaccines Aged Out No longer eligible based on patient's age to complete this topic Insurance MEDICARE BLUE CROSS - [place] MEDICARE ADVANTAGE
--- OUTSIDE RECORDS SUMMARY | 2024-11-23 10:06 | XMS_ITS | Continuity of Care Document ---
Author Organization [facility] [address] [place] [address] Phone [phone] Social History Type Date Description Comments Sex Unknown Medical Devices Description No Information Available Encounters Description No Information Available Assessments Description No Information Available Plan of Treatment No Information Available Functional Status Description No Information Available Mental Status Description No Information Available Referrals Description No Information Available
--- OUTSIDE RECORDS SUMMARY | 2024-11-23 10:06 | XMS_ITS | Encounter Summary ---
Author Organization [facility] [place] [address] Care Team Providers Care Senior Security Engineer Name Role Phone Unavailable Primary Care Provider Unavailabl e Encounter Details Date Type Department Care Team (Late st Contact Info) Description 07/04/2024 Lab Requisition [facility] Lab [address] [facility] [place] [id number] Mario Fleming III, MD [address] [place] [address] [place] [address] Encounter for screening for malignant neoplasm of skin Social History Tobacco Use Types Packs/Day Years Used Date Smoking Tobacco: Never Smokeless Tobacco: Never Sex and Gender Information Value Date Recorded Sex Assigned at Male 05/16/2024 7:29 AM EDT Legal Sex Male 11:45 AM EST Gender Identity Male 05/16/2024 7:29 AM EDT Sexual Orientation Not on file documented as of this encounter Plan of Treatment Not on file documented as of this encounter Procedures Procedure Name Priority Date/Time Associated Diagnosis Comments TISSUE EXAM Routine 07/05/2024 11:26 AM EST Encounter for screening for malignant neoplasm of skin documented in this encounter Results * Tissue Exam (07/05/2024 11:26 AM EST) Final Diagnosis Skin, left upper back-excision: -EPIDERMAL INCLUSION CYST, RUPTURED 07/05/2024 11:26 AM EST [facility] Clinical Information Left upper back sebaceous cyst, R 22.2 07/05/2024 11:26 AM [facility] Gross Description A. Back, Upper, left upper back: Labeled right upper back sebaceous cyst . Received in formalin is a 4.2 x 1 cm and oriented sanchez-white wrinkled skin ellipse excised to a depth of 1.6 cm. The epidermis is wrinkled and unremarkable. The cut surfaces display a 0.8 x 0.7 x 0.5 cm sanchez-yellow area of fat necrosis with a central 0.3 cm probable cyst. A solar sales representative and assessor section is submitted in one cassette, one piece. ZORAIDA 07/05/2024 11:26 AM [facility] Disclaimer Unless otherwise specified, all tissue is 10% NB formalin fixed and paraffin embedded. 07/05/2024 11:26 AM [facility] Tissue Upper back structure / Unknown 07/04/2024 8:04 AM EST us Mario Fleming III, MD LAB PATHOLOGY ORDERABLES Fi nal Result [facility] [address] [place] [address], documented in this encounter Visit Diagnoses Diagnosis Encounter for screening for malignant neoplasm of skin documented in this encounter
== END 2024-11-23 10:10 | disposition home or self-care (01) ==
LOC: HO.HPS 09:48
PROVIDERS: PCP Nurse Practitioner; Visit Provider Hospitalist
DX: R06.00 Dyspnea, unspecified (principal); R49.0 Dysphonia
CPT/HCPCS: 99214

== ENCOUNTER → 2024-11-23 09:47 | Outpatient (BNVA) | payer MEDICARE, SELFPAY | PROVIDERS: PCP Nurse Practitioner; Visit Provider Hospitalist | DX: R06.00 Dyspnea, unspecified (principal); R49.0 Dysphonia; Z87.891 Personal history of nicotine dependence | CPT/HCPCS: 99212 ==